=== PATIENT | female | born 1930 | race Caucasian/White ===

== ENCOUNTER 2018-08-21 16:37 | Emergency (ER) | payer OTHER ==
[~2018-08-21] VITALS: Ht 162.6 cm; Wt 49.9 kg
[2018-08-21 16:43] VITALS: BP 224/134
[2018-08-21] MEDS ORDERED: NACL 0.9% 500 ML IV SCH (16:46)
--- NOTE | 2018-08-21 16:50 | NUR ---
BP 224/134. PT STATES SHE TOOK HER BP MEDICATION WHILE IN ROUTE TO HOSPITAL.
--- NOTE | 2018-08-21 16:51 | NUR ---
87 Y FEMALE BIBA FROM HOME C/O DIZZINESS OF AND ON X1 DAY. PT CALLED 911 BECAUSE SHE FELT MORE DIZZY THAN USUAL. PT DENIES N/V/D, FEVER, CP, OR SOB. PT AAOX4. NEURO INTACT. 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 GCS 15. PUPILS RAJINDER, EVEN, AND REACTIVE TO LIGHT. PT HYPERTENSIVE. BED IS DOWN, LOCKED, BED RAIL X 1, ERMD TO SEE PT. MEDHX:HTN, HLD SEE MED RECON
--- NOTE | 2018-08-21 16:54 | NUR ---
PT [id number]. PT REFUSING LAB DRAW, EKG, AND IV INSERTION AT THIS TIME
--- NOTE | 2018-08-21 16:55 | NUR ---
DR BOSCH AT PT BEDSIDE
--- NOTE | 2018-08-21 17:00 | NUR ---
PT NOW SAYING YES TO BLOOD DRAW, IV, URINAYLSIS, AND EKG
--- NOTE | 2018-08-21 17:04 | NUR ---
EMT AT BEDSIDE FOR EKG
--- NOTE | 2018-08-21 17:06 | NUR ---
LAB AT BEDSIDE
--- NOTE | 2018-08-21 17:15 | NUR ---
PT DOES NOT WANT TO CHANGE INTO A GOWN
--- NOTE | 2018-08-21 17:18 | NUR ---
PT WHEELCHAIRED TO [facility] WITH ASSISTANCE
[2018-08-21] MEDS ORDERED: ASPI81EC98 PO (17:20)
[2018-08-21] MEDS ORDERED: ORE25 PO (17:20)
[2018-08-21] MEDS ORDERED: BISO5TAB2 PO (17:20)
[2018-08-21] MEDS ORDERED: SIMV40TA1 PO (17:20)
[2018-08-21] MEDS ORDERED: MAGN250T22 PO (17:20)
--- NOTE | 2018-08-21 17:25 | NUR ---
PT BEING TAKEN TO CT VIA WHEELCHAIR
[2018-08-21 17:26] LABS: BASOPHILS % (AUTO) 0.7 % (0.0-2.0); EOSINOPHILS # (AUTO) 0.1 K/uL (0-0.4); EOSINOPHILS % (AUTO) 1.1 % (0.0-4.0); HEMATOCRIT 41.1 % (36-48); HEMOGLOBIN 13.6 g/dL (12.0-16.0); LYMPHOCYTES # (AUTO) 1.9 K/uL (2.5-16.5); LYMPHOCYTES % (AUTO) 26.6 % (20.5-51.1); MEAN CORPUSCULAR HEMOGLOBIN 30 pg (27-31); MEAN CORPUSCULAR HGB CONC 33 g/dL (33-37); MEAN CORPUSCULAR VOLUME 89.5 fL (80-94); MONOCYTES # (AUTO) 0.6 K/uL (0.8-1.0); MONOCYTES % (AUTO) 7.7 % (1.7-9.3); NEUTROPHILS # (AUTO) 4.6 K/uL (1.8-7.7); NEUTROPHILS % (AUTO) 63.9 % (42.2-75.2); PLATELET COUNT (AUTO) 271 K/uL (140-450); RED BLOOD CELL COUNT(AUTO) 4.59 MIL/uL (4.20-5.40); RED CELL DISTRIBUTION WIDTH 14.4 % (11.6-13.7); WHITE BLOOD COUNT (AUTO) 7.2 K/uL (4.8-10.8)
[2018-08-21 17:37] LABS: APPEARANCE,URINE CLEAR (CLEAR); BILIRUBIN,URINE NEGATIVE (NEGATIVE); BLOOD, URINE NEGATIVE (NEGATIVE); COLOR,URINE YELLOW (YELLOW); LEUKOCYTE ESTERASE ,URINE NEGATIVE (NEGATIVE); NITRITE, URINE NEGATIVE (NEGATIVE); UGLUCOSE NEGATIVE (NEGATIVE)
[2018-08-21 17:37] LABS: ANION GAP 13.7 (8-16); CARBON DIOXIDE 26.9 mmol/L (21-32); CHLORIDE 96 mmol/L (98-107); CREATININE 0.8 mg/dL (0.6-1.3); GLUCOSE 111 mg/dL (74-106); POTASSIUM 3.6 mmol/L (3.5-5.1); SODIUM SERUM 133 mmol/L (136-145); UREA NITROGEN, BLOOD 17 mg/dL (7-18)
[2018-08-21 17:41] LABS: PROTHROMBIN TIME 9.8 secs (10.8-13.4)
[2018-08-21 17:42] LABS: ALBUMIN 4.1 g/dL (3.4-5.0); ASPARTATE AMINOTRANSFERASE 23 U/L (15-37); TOTAL BILIRUBIN 0.3 mg/dL (0.0-1.0)
[2018-08-21] MEDS ORDERED: hydrALAZINE 20 MG/ML VIAL IVP ONE (18:25)
--- NOTE | 2018-08-21 18:25 | NUR ---
NEW BP 208/73
--- NOTE | 2018-08-21 18:54 | NUR ---
NEW BP IS 163/59
[2018-08-21 19:12] VITALS: BP 163/59
--- NOTE | 2018-08-21 19:12 | NUR ---
Patient discharged with v/s stable. Written and verbal after care instructions given and explained TO BOTH PATIENT AND SON. Patient verbalized understanding. EMT WHEELCHAIRED PT TO CAR. All questions addressed prior to discharge. Advised to follow up with PMD.
== END 2018-08-21 19:12 | disposition home or self-care (01) ==
LOC: MED 16:37
DX: I10 Essential (primary) hypertension (principal); R79.1 Abnormal coagulation profile; Z79.82 Long term (current) use of aspirin; Z79.899 Other long term (current) drug therapy; Z88.0 Allergy status to penicillin; Z88.8 Allergy status to other drugs, medicaments and biological substances
CPT/HCPCS: 36415; 70450; 71045; 80053; 81003; 83605; 83880; 84484; 85025; 85610; 85730; 87040; 87086; 93005; 96361; 96374; 99284; J0360; J7030; Q0092